=== PATIENT | female | born 1990 | race African-American/Black ===

== ENCOUNTER 2025-06-09 15:24 | Emergency (ER) | payer OTHER ==
[~2025-06-09] VITALS: Ht 162.6 cm; Wt 119.0 kg
[2025-06-09] MEDS ORDERED: [UNRECOGNIZED DRUG - CODE] PO (16:08)
[2025-06-09] MEDS ORDERED: ECOT81TA5 PO (16:08)
[2025-06-09 16:11] LABS: BASO # 0.0 10^3/uL (0.0-0.2); BASO % 0.5 % (0.0-1.0); EOS # 0.3 10^3/uL (0.0-0.5); EOS % 3.7 % (0.0-3.0); LYMPH # 2.0 10^3/uL (1.5-5.0); LYMPH % 25.2 % (24.0-44.0); MONO # 0.7 10^3/uL (0.0-0.8); MONO % 8.1 % (2.0-8.0); NEUTROPHILS # 5.0 10^3/uL (1.5-8.5); NEUTROPHILS % 62.0 % (36.0-66.0); PLATELET COUNT, AUTOMATED 463 10^3/uL (150-450)
[2025-06-09 16:35] LABS: CK-MB VALUE MASS 1.0 NG/ML (<3.6)
[2025-06-09 16:36] LABS: CPK CREATINE PHOSPHOKINASE 130 U/L (34-145); MB/CK RELATIVE INDEX 0.76 (< OR =4)
[2025-06-09 16:37] LABS: ALT/SGPT 14 U/L (7.0-40); AST/SGOT 15 U/L (<34); CALCIUM LEVEL 9.0 MG/DL (8.5-10.1); CARBON DIOXIDE LEVEL 26 MMOL/L (20-31); CHLORIDE LEVEL 105 MMOL/L (98-107); CREATININE FOR GFR 0.88 MG/DL (0.55-1.30); GLOMERULAR FILTRATION RATE 88.4 (>60); POTASSIUM SERUM 4.1 MMOL/L (3.5-5.1); SODIUM LEVEL 140 MMOL/L (136-145)
[2025-06-09 16:39] LABS: FREE T4 1.21 NG/DL (0.89-1.76)
[2025-06-09] MEDS: LEVALBUTEROL 1.25 MG 0.5ML CONCENTRATE NEB INH ONE (16:39)
[2025-06-09 16:51] LABS: HCG, SERUM QUALITATIVE NEGATIVE (NEGATIVE)
[2025-06-09 17:44] LABS: CK-MB VALUE MASS < 1.0 NG/ML (<3.6)
[2025-06-09 17:47] LABS: CPK CREATINE PHOSPHOKINASE 127 U/L (34-145)
[2025-06-09] MEDS ORDERED: ISOVUE-370 76% 100 ML VIAL As Ordered ONE (18:18)
[2025-06-09 18:35] VITALS: BP 177/100
[2025-06-09] MEDS: hydrALAZINE 20 MG/ML 1 ML VIAL IV ONE (18:35)
[2025-06-09 20:00] VITALS: TEMP 98.3
[2025-06-09 21:00] VITALS: BP 157/87; O2SAT 98
[2025-06-09] MEDS ORDERED: ALBU8.5H INH (21:09)
[2025-06-09] MEDS ORDERED: PRED20TA PO (21:09)
[2025-06-09] MEDS ORDERED: HYDR25TA87 PO (21:09)
== END 2025-06-09 21:26 | disposition home or self-care (01) ==
LOC: M ED 15:24
DX: R07.89 Other chest pain (principal); J45.909 Unspecified asthma, uncomplicated; I10 Essential (primary) hypertension; D50.9 Iron deficiency anemia, unspecified; F17.200 Nicotine dependence, unspecified, uncomplicated; Z79.82 Long term (current) use of aspirin; Z79.899 Other long term (current) drug therapy
CPT/HCPCS: 71045; 71275; 80048; 80076; 82550; 82553; 83690; 83880; 84439; 84443; 84484; 84703; 85025; 85730; 87486; 87581; 87633; 87798; 93005; 93041; 94640; 94760; 96374; 96375; 99285; J0360; J2919; Q9967

== ENCOUNTER → 2025-06-11 | Outpatient (CLI) | payer OTHER ==
[~2025-06-11] MED LIST: ALBU8.5H INH; ECOT81TA5 PO; HYDR25TA87 PO; PRED20TA PO; [UNRECOGNIZED DRUG - CODE] PO
== END ==
LOC: M EKG 14:12
PROVIDERS: ATTEND Student in an Organized Health Care Education/Training Program
DX: R00.2 Palpitations (principal)

== ENCOUNTER 2025-06-13 13:23 | Emergency (ER) | payer OTHER, SELFPAY ==
[~2025-06-13] VITALS: Ht 162.6 cm; Wt 118.0 kg
[2025-06-13 13:25] VITALS: BP 190/80; TEMP 96.7; O2SAT 97
[2025-06-13 14:22] LABS: BASO # 0.0 10^3/uL (0.0-0.2); BASO % 0.4 % (0.0-1.0); EOS # 0.2 10^3/uL (0.0-0.5); EOS % 1.7 % (0.0-3.0); LYMPH # 2.5 10^3/uL (1.5-5.0); LYMPH % 23.3 % (24.0-44.0); MONO # 0.7 10^3/uL (0.0-0.8); MONO % 6.5 % (2.0-8.0); NEUTROPHILS # 7.2 10^3/uL (1.5-8.5); NEUTROPHILS % 67.6 % (36.0-66.0); PLATELET COUNT, AUTOMATED 464 10^3/uL (150-450)
[2025-06-13 14:49] LABS: ALT/SGPT < 9 U/L (7.0-40); AST/SGOT 13 U/L (<34); CALCIUM LEVEL 9.5 MG/DL (8.5-10.1); CARBON DIOXIDE LEVEL 26 MMOL/L (20-31); CHLORIDE LEVEL 101 MMOL/L (98-107); CK-MB VALUE MASS < 1.0 NG/ML (<3.6); CPK CREATINE PHOSPHOKINASE 140 U/L (34-145); CREATININE FOR GFR 0.95 MG/DL (0.55-1.30); GLOMERULAR FILTRATION RATE 80.6 (>60); POTASSIUM SERUM 3.8 MMOL/L (3.5-5.1); SODIUM LEVEL 139 MMOL/L (136-145)
[2025-06-13 14:50] LABS: HCG, SERUM QUALITATIVE NEGATIVE (NEGATIVE)
== END 2025-06-13 17:30 | disposition left against medical advice (07) ==
LOC: M ED 13:23
DX: Z53.21 Procedure and treatment not carried out due to patient leaving prior to being seen by health care provider (principal)